=== PATIENT | male | born 2005 | race Two or more races ===

== ENCOUNTER 2025-02-13 11:21 | Emergency (ER) | payer MEDICAID ==
[~2025-02-13] VITALS: Ht 152.4 cm; Wt 73.5 kg
[2025-02-13 12:33] VITALS: BP 121/85; TEMP 98.6; O2SAT 96
== END 2025-02-13 12:34 | disposition home or self-care (01) ==
LOC: ER 11:38
DX: S61.412A Laceration without foreign body of left hand, initial encounter (principal); W26.8XXA Contact with other sharp object(s), not elsewhere classified, initial encounter; Y93.89 Activity, other specified; Y92.009 Unspecified place in unspecified non-institutional (private) residence as the place of occurrence of the external cause; Y99.8 Other external cause status
CPT/HCPCS: 12001; 99282; A6403